=== PATIENT | male | born 1950 | race Caucasian/White ===

== ENCOUNTER → 2016-03-04 | Day surgery (SDC) | payer BC ==
[~2016-03-04] VITALS: Ht 172.7 cm; Wt 71.4 kg
[~2016-03-04] MED LIST: ATROPINE SULFATE 1% OPHT SOLN 2 ML BTL ONE; BALANCED SALT SOLN OPHT IRRIG 15 ML BTL ONE; BALS750C PO; CITA20TA4 PO; DEXAMETHASONE SOD PHOS 4 MG/ML VIAL ONE; DO NOT ADM ANY ANTICOAGULANT DRUGS XX PRN; EPINEPHrine HCL (1:1000) 1 MG/ML VIAL ONE; FAMOTIDINE 20 MG/2 ML VIAL ONE; INSULIN HUMAN REGULAR 1,000 UNITS/10 ML VIAL SQ PRN; LACTATED RINGER'S 1000 ML INJ 1,000 ML IV ONE; LACTATED RINGER'S 1000 ML IV SCH; METOPROLOL TARTRATE 25 MG TAB PO PRN; MIDAZOLAM HCL 2 MG/2 ML VIAL ONE; ONDANSETRON HCL 4 MG/2 ML VIAL IV PUSH ONE; PROPOFOL 200 MG/20 ML AMP IV ONE; SODIUM CHLORID 0.9% 500 ML IV SCH; STERILE WATER FOR INJ 20 ML VIAL ONE; TOBRAMYCIN/DEXAMETHASONE OPTH OINT 3.5 GM TUBE ONE; TRIAMCINOLONE ACETONIDE/PF 40 MG/ML OPTH VIAL ONE; ceFAZolin INJ 1,000 MG VIAL ONE; oxyCODONE/ACETAMINOPHEN 5 MG/325 MG TAB ONE
[2016-03-04 10:16] VITALS: BP 131/79; PULSE 65; RESP 18; TEMP 99; O2SAT 98
[2016-03-04 10:19] LABS: AUTOMATED NEUTROPHIL # 2.3 TH/MM3 (1.8-7.7); BASOPHIL % 0.3 % (0.0-2.0); EOSINOPHIL # 0.2 TH/MM3 (0-0.4); EOSINOPHIL % 4.3 % (0.0-4.0); HEMO FLAGS DIFF FINAL; LYMPHOCYTE # 1.1 TH/MM3 (1.0-4.8); MEAN CELL VOLUME 98.8 FL (80.0-100.0); MEAN CORPUSCULAR HEMOGLOBIN 33.2 PG (27.0-34.0); MEAN CORPUSCULAR HGB CONC 33.6 % (32.0-36.0); MONO % 12.5 % (0.0-8.0); NEUT % 55.9 % (16.0-70.0); PLATELET COUNT 194 TH/MM3 (150-450); RED BLOOD COUNT 4.66 MIL/MM3 (4.50-5.90); RED CELL DISTRIBUTION WIDTH 13.5 % (11.6-17.2); WHITE BLOOD COUNT 4.2 TH/MM3 (4.0-11.0)
[2016-03-04] MEDS: CYCLOPENTOLATE HCL 1% OPHT SOLN 2 ML BTL LEFT EYE SCH ×3 (11:00→11:30)
[2016-03-04] MEDS: TROPICAMIDE 1% OPTH SOLN 2 ML BTL LEFT EYE SCH ×3 (11:00→11:30)
[2016-03-04] MEDS: PHENYLEPHRINE HCL 2.5% OPTH SOLN 2 ML BTL LEFT EYE SCH ×3 (11:00→11:30)
[2016-03-04] MEDS: ATROPINE SULFATE 1% OPHT SOLN 5 ML BTL LEFT EYE SCH ×3 (11:00→11:30)
[2016-03-04 15:25] VITALS: BP 113/61; PULSE 76; RESP 16; TEMP 98; O2SAT 96
--- NOTE | 2016-03-04 16:13 | EKG ---
Date Performed: 03/04/2016 Time Performed: 09:51:53 PTAGE: 65 years EKG: Sinus rhythm LEFT BUNDLE BRANCH BLOCK ABNORMAL ECG NO PREVIOUS TRACING DOCTOR: Ernesto Fernando Interpretating Date/Time 03/04/2016 16:11:23
--- NOTE | 2016-03-10 06:54 | MP ---
cc: MARY TANG M.D. DATE OF SURGERY 03/04/2016 DATE OF 1950 PREOPERATIVE DIAGNOSIS Rhegmatogenous retinal detachment left eye. POSTOPERATIVE DIAGNOSIS Rhegmatogenous retinal detachment left eye. PROCEDURE Trans pars plana vitrectomy, gas-fluid exchange, endolaser photocoagulation, left eye. SURGEON Dr. Mary Tang ANESTHESIA General laryngeal mask anesthesia. INDICATIONS Mr. Vang is a 65-year-old gentleman who began having floaters approximately a month ago. Then approximately a week ago he started noticing decreasing vision. He presented with an inferior retinal detachment with guttering up to breaks between 11 and 12 o'clock. His macula was partially involved. He was told that he needed surgery and that he would have a vitrectomy and possible scleral buckle. Informed consent was obtained for both of these procedures. No guarantee was made as to visual outcome. PROCEDURE He was brought to [facility] Operating Room #1 and placed on the operating table. Appropriate anesthesia monitoring devices were applied and he was placed under general anesthesia using a laryngeal mask. The left eye was identified as the operative site and then prepped and draped in the usual sterile fashion. A lid speculum was placed. The microscope was brought around and adjusted. At this point an appropriate time-out was called with the surgical team agreeing to the surgical site and planned procedure. Using the Lonnie 23-gauge vitrectomy system the trocar cannulas were placed 3.5 mm posterior to the limbus after first displacing the conjunctiva and with a beveled entrance. The first one was placed at approximately 3 o'clock and verified to be in the posterior chamber. An infusion cannula was affixed to it and turned on. Two additional trocar cannulas were placed at 10 and 2 o'clock. The eye was entered with the Endo-pillar man light pipe and vitrectomy cutter and using the wide-angle viewing system vitrectomy was carried out. The retinal detachment went from approximately 12 o'clock, around to approximately 4 o'clock and was very bullous, so after the core vitrectomy was carried out Perfluoron was injected into the posterior chamber to help stabilize the retina while the more peripheral vitreous was trimmed to the vitreous base. The retinal breaks were at 11:30 and 12 o'clock and meticulous shaving of the vitreous over those were performed. Next, additional Perfluoron was placed in the eye to flatten the peripheral retina and then laser photocoagulation using the endolaser probe was performed between approximately 5 o'clock, around to approximately 8 o'clock and then in the areas between 11 and 12:30 o'clock. A total of 1368 laser spots were placed using a power that varied between 250 and 350 milliwatts and 0.1-second exposure. The retina was completely flat and Perfluoron was removed and exchanged for air. The air was then exchanged for a 15% mixture of C3F8 gas. The cannulas were removed one by one with tamponade of the site with a cotton swab and then diathermy to the overlying conjunctival wound. This left the eye with good pressure and no visible air leaks. Atropine drops were placed on the cornea followed by sub-Tenon injection of Ancef 125 mg in 0.5 cc and Decadron 2 mg in 0.5 cc. The lid speculum was removed and the patient was undraped. TobraDex ointment was placed on the cornea and then the left eye was patched and shielded. It should be noted that to complete the laser, the corneal epithelium had to be scraped centrally to allow visualization as it had turned cloudy. MD SYLVIA Quiroga/LALO /2:00 PM /6:38 AM
== END | disposition home or self-care (01) ==
LOC: HSDC 09:14
PROVIDERS: ATTEND Ophthalmology
DX: H33.002 Unspecified retinal detachment with retinal break, left eye (principal); R94.31 Abnormal electrocardiogram [ECG] [EKG]
CPT/HCPCS: 00145; 67025; 67039; 85025; 93005; J0171; J0690; J1100; J2250; J2405; J3010; J7120; J3300